=== PATIENT | female | born 1945 | race Two or more races ===

== ENCOUNTER 2025-03-10 13:17 | Inpatient (IN) | payer OTHER ==
[~2025-03-10] VITALS: Ht 157.5 cm; Wt 77.1 kg
[2025-03-10] MEDS ORDERED: METFORMIN HCL500 M3 PO (14:38)
--- NOTE | 2025-03-10 14:38 | NUR ---
PACIENTE LLEGA EN AMBULANCIA FRENCHYS, ALERTA Y ORIENTADA POR 3, SE LE REALIZA ENTREVISTA A PACIENTE, SE LE SIRENA S/V Y EKG, SE LE NOTIFICA A LA DOCTORA BERLINGERI, SE UBICA EN CAMA, SE ORIENTA PACIENTE Y REFIERE ENTENDER.
[2025-03-10 14:40] LABS: BASO % 0.4 % (0.1-1.2); EOS # 0.01 (0.04-0.54); EOS % 0.1 % (0.7-7.0); LYMPH # 1.70 (1.18-3.74); LYMPH % 13.2 % (19.3-53.1); MEAN PLATELET VOLUME 11.70 fl (9.4-12.4); MONO # 0.78 (0.24-0.82); MONO % 6.0 % (4.7-12.5); NEUT # 10.32 (1.56-6.13); NEUT % 79.9 % (34.0-71.1); RED CELL DISTRIBUTION WIDTH 13.2 % (11.6-14.4)
[2025-03-10 14:42] LABS: ERYTHROCYTE SEDIMENTATION RATE 49 mm/hr (0-30)
[2025-03-10] MEDS ORDERED: KETOROLAC TROMETHAMINE 30 MG VIAL IM ONE (14:45)
[2025-03-10] MEDS ORDERED: CYCLOBENZAPRINE HCL 5 MG TABLET PO ONE (14:45)
[2025-03-10] MEDS ORDERED: PANTOPRAZOLE SODIUM 80 MG in 0.9 % SODIUM CHLORIDE 100 ML IV SCH (15:00)
[2025-03-10] MEDS ORDERED: OCTREOTIDE ACETATE 1,250 MCG in 0.9 % SODIUM CHLORIDE 250 ML IV SCH ×2 (15:00→23:45)
[2025-03-10 15:05] LABS: ALT/SGPT 31.0 U/L (12-78); AST/SGOT 27.0 U/L (15-37); BILIRUBIN TOTAL 1.28 mg/dL (0.3-1.2); BUN CREA RATIO 67.0 (7.0-25.0); CREATININE SERUM 0.57 mg/dL (0.55-1.02); GFR 102.58; GLOBULINA 3.9 G/DL (2.4-3.5); GLUCOSE FASTING 150.0 mg/dL (65-100); OSMOLALITY SERUM 291.0 MOSM/KG (275-295)
[2025-03-10 15:13] LABS: INR 1.19
[2025-03-10 15:35] LABS: URINE APPEARANCE Clear; URINE BILIRRUBIN Negative (NEGATIVE); URINE BLOOD Negative; URINE COLOR Yellow; URINE GLUCOSE Negative (NEGATIVE); URINE KETONE Negative (NEGATIVE); URINE LEUKOCYTE Small; URINE NITRATE Negative; URINE PROTEIN Negative (NEGATIVE); URINE UROBILINOGEN 0.2 E.U./dl
[2025-03-10 15:36] LABS: URINE BACTERIA 768.6 uL (0.0-1933); URINE EPITHELIAL CELLS 41.2 uL (0.0-38.8); URINE RBC 5.9 uL (0.0-20.8); URINE WBC 60.3 uL (0.0-23.2)
[2025-03-10 15:42] LABS: URINE CAST 0.28 uL (0.0-1.40)
[2025-03-10 15:56] LABS: COVID-19 AG NEGATIVE (NEGATIVE)
[2025-03-10] MEDS ORDERED: ONDANSETRON HCL 2 MG/ML VIAL ONE (16:20)
[2025-03-10] MEDS ORDERED: ONDANSETRON HCL 2 MG/ML VIAL IV PRN (16:30)
[2025-03-10 22:19] LABS: BASO % 0.5 % (0.1-1.2); EOS # 0.00 (0.04-0.54); EOS % 0.0 % (0.7-7.0); LYMPH # 1.71 (1.18-3.74); LYMPH % 14.7 % (19.3-53.1); MEAN PLATELET VOLUME 11.10 fl (9.4-12.4); MONO # 0.79 (0.24-0.82); MONO % 6.8 % (4.7-12.5); NEUT # 8.99 (1.56-6.13); NEUT % 77.5 % (34.0-71.1); RED CELL DISTRIBUTION WIDTH 13.3 % (11.6-14.4)
[2025-03-10] MEDS ORDERED: CEFTRIAXONE SODIUM 2,000 MG in 0.9 % SODIUM CHLORIDE 100 ML IV SCH (23:38)
[2025-03-10] MEDS ORDERED: FAMOTIDINE/PF 20 MG in 0.9 % SODIUM CHLORIDE 100 ML IV SCH (23:39)
[2025-03-10] MEDS ORDERED: GABAPENTIN 100 MG CAPSULE PO SCH (23:45)
[2025-03-10] MEDS ORDERED: ONDANSETRON HCL 4 MG in 0.9 % SODIUM CHLORIDE 50 ML IV PRN (23:45)
[2025-03-10] MEDS ORDERED: NICOTINE 21MG/24HR PATCH.TD24 TD SCH (23:49)
[2025-03-11 05:10] LABS: INR 1.21
[2025-03-11 05:15] LABS: BUN CREA RATIO 59.0 (7.0-25.0); CREATININE SERUM 0.73 mg/dL (0.55-1.02); GFR 77.1; GLUCOSE FASTING 164.0 mg/dL (65-100); OSMOLALITY SERUM 298.0 MOSM/KG (275-295)
[2025-03-11 09:17] VITALS: BP 113/63; O2SAT 94
[2025-03-11 13:01] LABS: BASO % 0.6 % (0.1-1.2); EOS # 0.01 (0.04-0.54); EOS % 0.1 % (0.7-7.0); LYMPH # 1.78 (1.18-3.74); LYMPH % 15.6 % (19.3-53.1); MEAN PLATELET VOLUME 11.70 fl (9.4-12.4); MONO # 0.94 (0.24-0.82); MONO % 8.2 % (4.7-12.5); NEUT # 8.61 (1.56-6.13); NEUT % 75.3 % (34.0-71.1); RED CELL DISTRIBUTION WIDTH 13.5 % (11.6-14.4)
[2025-03-11] MEDS ORDERED: OCTREOTIDE ACETATE 5MCG/ML REDILUIDO IV SCH (17:00)
[2025-03-11 18:52] VITALS: BP 120/70; O2SAT 95
[2025-03-11] MEDS ORDERED: GABAPENTIN 100 MG CAPSULE PO SCH (21:00)
[2025-03-11 23:22] LABS: ob POSITIVE (NEGATIVE)
[2025-03-12 01:21] VITALS: BP 101/51; O2SAT 99
[2025-03-12 06:20] LABS: BASO % 0.7 % (0.1-1.2); EOS # 0.05 (0.04-0.54); EOS % 0.6 % (0.7-7.0); LYMPH # 1.52 (1.18-3.74); LYMPH % 17.0 % (19.3-53.1); MEAN PLATELET VOLUME 11.80 fl (9.4-12.4); MONO # 0.78 (0.24-0.82); MONO % 8.7 % (4.7-12.5); NEUT # 6.48 (1.56-6.13); NEUT % 72.6 % (34.0-71.1); RED CELL DISTRIBUTION WIDTH 13.7 % (11.6-14.4)
[2025-03-12 08:43] VITALS: BP 117/60; O2SAT 96
[2025-03-12] MEDS ORDERED: NICOTINE 21MG/24HR PATCH.TD24 TD SCH (09:00)
[2025-03-12] MEDS ORDERED: CLONAZEPAM 0.5 MG TABLET PO PRN (18:00)
[2025-03-12 22:26] VITALS: BP 112/63
[2025-03-13 02:05] VITALS: BP 96/55; O2SAT 95
[2025-03-13 07:00] VITALS: BP 87/42; O2SAT 89
[2025-03-13 08:52] VITALS: BP 123/60; O2SAT 97
[2025-03-13] MEDS ORDERED: ATORVASTATIN CALCIUM 20 MG TABLET PO SCH (09:00)
[2025-03-13 20:17] VITALS: BP 91/52
[2025-03-14 01:14] VITALS: BP 102/51; O2SAT 99
[2025-03-14] MEDS ORDERED: PANTOPRAZOLE SODIUM 40 MG/VIAL VIAL IV NR (10:00)
[2025-03-14 11:16] VITALS: BP 133/66; O2SAT 99
[2025-03-14 14:55] LABS: BASO % 0.7 % (0.1-1.2); EOS # 0.13 (0.04-0.54); EOS % 3.0 % (0.7-7.0); LYMPH # 0.77 (1.18-3.74); LYMPH % 17.6 % (19.3-53.1); MEAN PLATELET VOLUME 11.50 fl (9.4-12.4); MONO # 0.40 (0.24-0.82); MONO % 9.2 % (4.7-12.5); NEUT # 3.02 (1.56-6.13); NEUT % 69.0 % (34.0-71.1); RED CELL DISTRIBUTION WIDTH 15.0 % (11.6-14.4)
[2025-03-14] MEDS ORDERED: PANTOPRAZOLE SODIUM 40 MG/VIAL VIAL IV SCH (17:00)
[2025-03-14 20:03] VITALS: BP 98/51
[2025-03-14] MEDS ORDERED: SODIUM CL 0.9% 50 ML IV.SOLN IV ONE (23:41)
[2025-03-15 03:04] VITALS: BP 95/54; O2SAT 97
[2025-03-15 08:58] VITALS: BP 104/49; O2SAT 97
[2025-03-15] MEDS ORDERED: MIDAZOLAM HCL 2 MG/2 ML VIAL IV ONE (16:45)
[2025-03-15] MEDS ORDERED: fentaNYL CITRATE 50 MCG/ML AMPUL IV PUSH ONE (16:45)
[2025-03-15] MEDS ORDERED: DIPHENHYDRAMINE HCL 50 MG/ML VIAL 1ML IV ONE (16:45)
[2025-03-15 19:04] VITALS: BP 144/80; O2SAT 96
[2025-03-16 03:28] VITALS: BP 97/57; O2SAT 98
[2025-03-16 09:10] VITALS: BP 128/68; O2SAT 96
[2025-03-16 18:39] VITALS: BP 124/62; O2SAT 97
[2025-03-17 02:52] VITALS: BP 147/97; O2SAT 95
[2025-03-17 02:55] VITALS: BP 101/57; O2SAT 90
[2025-03-17 07:57] LABS: BASO % 0.9 % (0.1-1.2); EOS # 0.17 (0.04-0.54); EOS % 5.2 % (0.7-7.0); LYMPH # 0.90 (1.18-3.74); LYMPH % 27.4 % (19.3-53.1); MEAN PLATELET VOLUME 11.90 fl (9.4-12.4); MONO # 0.36 (0.24-0.82); MONO % 10.9 % (4.7-12.5); NEUT # 1.79 (1.56-6.13); NEUT % 54.4 % (34.0-71.1); RED CELL DISTRIBUTION WIDTH 13.9 % (11.6-14.4)
[2025-03-17 08:45] VITALS: BP 102/60; O2SAT 98
== END 2025-03-17 11:58 | disposition home or self-care (01) | DRG 379 ==
LOC: ER 13:17 → SEC-K 03-11 00:08 → MEDI 03-11 00:08
PROVIDERS: Internal Medicine; Physician Assistant Medical; ADMIT Student in an Organized Health Care Education/Training Program; ATTEND Student in an Organized Health Care Education/Training Program
PROC: BW21YZZ Computerized Tomography (CT Scan) of Abdomen and Pelvis using Other Contrast (ICD-10-PCS; principal; 2025-03-10)
PROC: 02HV33Z Insertion of Infusion Device into Superior Vena Cava, Percutaneous Approach (ICD-10-PCS; 2025-03-13)
PROC: 30233N1 Transfusion of Nonautologous Red Blood Cells into Peripheral Vein, Percutaneous Approach (ICD-10-PCS; 2025-03-13)
PROC: 0DJ08ZZ Inspection of Upper Intestinal Tract, Via Natural or Artificial Opening Endoscopic (ICD-10-PCS; 2025-03-15)
DX: K92.1 Melena (principal); K92.0 Hematemesis; I10 Essential (primary) hypertension; K74.60 Unspecified cirrhosis of liver